=== PATIENT | male | born 1970 | race Caucasian/White ===

== ENCOUNTER 2023-02-06 05:59 | Day surgery (SDC) | payer OTHER ==
[2023-02-06] MEDS ORDERED: Acetaminophen 500 MG Tab PO ONE (06:15)
[2023-02-06] MEDS ORDERED: Lactated Ringers 1,000 ML IV SCH (06:45)
[2023-02-06] MEDS ORDERED: Bupivacaine 0.5%/EPINEPHrine 1:200,000 50 ML MDV ONE (06:57)
[2023-02-06] MEDS ORDERED: Propofol 200 MG/20 ML SDV ONE (07:13)
[2023-02-06] MEDS ORDERED: Glycopyrrolate 0.2 MG/ML 5 ML MDV ONE (07:13)
[2023-02-06] MEDS ORDERED: Neostigmine Methylsulfate 1 MG/ML 5 ML Syringe ONE (07:13)
[2023-02-06] MEDS ORDERED: Succinylcholine 200 MG/10 ML MDV ONE (07:13)
[2023-02-06] MEDS ORDERED: Rocuronium 50 MG/5 ML Vial ONE (07:13)
[2023-02-06] MEDS ORDERED: Dexamethasone 4 MG/ML SDV ONE (07:13)
[2023-02-06] MEDS ORDERED: Ondansetron 4 MG/2 ML SDV ONE (07:13)
[2023-02-06] MEDS ORDERED: fentaNYL 250 MCG/5 ML SDV ONE ×2 (07:14→08:04)
[2023-02-06] MEDS ORDERED: ceFAZolin 2 GM in Premix Bag 1 BAG IV ONE (07:30)
[2023-02-06] MEDS ORDERED: Ketorolac 30 MG/ML SDV ONE (08:34)
[2023-02-06] MEDS ORDERED: Lactated Ringers 1,000 ML ONE (08:44)
[2023-02-06] MEDS ORDERED: Naloxone 0.4 MG/ML SDV ONE (10:09)
[2023-02-06] MEDS ORDERED: Acetaminophen/HYDROcodone 325-5 MG Tab PO ONE (11:15)
== END 2023-02-06 12:55 | disposition home or self-care (01) ==
LOC: JP.SDS 05:59
PROVIDERS: ATTEND Student in an Organized Health Care Education/Training Program
DX: K40.90 Unilateral inguinal hernia, without obstruction or gangrene, not specified as recurrent (principal); K21.9 Gastro-esophageal reflux disease without esophagitis; F90.9 Attention-deficit hyperactivity disorder, unspecified type; Z79.899 Other long term (current) drug therapy
CPT/HCPCS: 49650; A9270; C1781; J0330; J0690; J1100; J1885; J2310; J2405; J2704; J2710; J3010; J3490; J7120